=== PATIENT | male | born 1945 | race Caucasian/White ===

== ENCOUNTER 2022-10-24 09:50 | Inpatient (IN) | payer OTHER, SELFPAY ==
[2022-10-17 09:53] VITALS: BMI 23.3
[2022-10-24] VITALS (14 sets, daily range): BP systolic 82–143; BP diastolic 55–92; PULSE 60–76; RESP 11–19; TEMP 35.8–37; O2SAT 93–99; BMI 23.3
--- NOTE | 2022-10-24 06:00 | DI.RAD.S_ITS ---
PROCEDURE: XR SHOULDER LT 1V INDICATIONS: prosthesis placement TECHNIQUE: 1 views of the shoulder were acquired. COMPARISON: None. FINDINGS: Bones: Left shoulder arthroplasty. No fractures or dislocations. No suspicious bony lesions. Visualized ribs appear intact. Soft tissues: No suspicious soft tissue calcifications. IMPRESSION: Expected appearance of left shoulder arthroplasty. Dictated by: Crow Negro M.D. on 10/24/2022 at 14:57 Approved by: Crow Negro M.D. on 10/24/2022 at 14:57
[2022-10-24] MEDS: ACETAMINOPHEN 325 MG TABLET 975 MG PO (10:46)
[2022-10-24] MEDS: LACTATED RINGERS 1,000 ML 84 ML IV ×2 (10:46→13:02)
[2022-10-24] MEDS: CELECOXIB 200 MG CAPSULE PO (10:47)
[2022-10-24] MEDS: PREGABALIN 75 MG CAPSULE PO (10:47)
--- NOTE | 2022-10-24 11:10 | PM.PREOP ---
Pre-operative Note COVID-19 COVID-19 status: Negative Result date/Date tested (Pos, Neg/Pending): 10/23/22 Interval Note History & Physical reviewed/Exam performed by Physician: Yes Changes to H&P: No
--- NOTE | 2022-10-24 11:46 | SUR.PREOP ---
Block start time 1133. Monitoring initiated and maintained throughout procedure. Oxygen and medications given per anesthesiologist instructions. Patient remained stable throughout procedure, no adverse reactions noted. Block end time 1144.
[2022-10-24] MEDS: CEFAZOLIN 2 GM/100 ML PREMIX 100 ML IV ×2 (12:00→20:06)
[2022-10-24] MEDS: TRANEXAMIC ACID 1,000 MG VIAL 1000 MG INJ ×2 (12:15→13:34)
--- NOTE | 2022-10-24 12:23 | SUR.OPER ---
Beach chair with Schlein shoulder positioner. Lower body on padded OR bed. Head in foam padded head cradle, secured with straps. Non-operative arm secured AT SIDE. Pillow under knees. Safety belt at thigh. Cloth tape over blanket over lower legs.
[2022-10-24] MEDS: BUPIVACAINE 0.5% W/ EPI (PF) 30 ML VIAL INJ (12:28)
--- NOTE | 2022-10-24 13:52 | P.OP_ITS ---
Operative Date/Time/Diagnoses Date of procedure: 10/24/22 Time of procedure: 13:52 Pre-op diagnosis: Left massive, irreparable rotator cuff tear Post-op diagnosis: same Procedure & Clinicians Procedure: Left reverse total shoulder replacement Same procedure as scheduled: Yes Indications: The patient is had chronic left shoulder pain unresponsive to nonoperative therapies. Radiographic studies and arthroscopy have revealed changes consistent with a massive rotator cuff tear. They have elected to proceed with reverse total shoulder replacement after discussion of the risks benefits and alternatives. Risks discussed included but were not limited to: Failure to improve, instability, infection, nerve damage, deep venous thrombosis, pulmonary embolism, stroke, coma, myocardial infarction and . Surgeon: Luis Bui Automobile Locator: Erna Pradhan Yes if Unassisted: No Anesthesia Type: General, Peripheral nerve block and Local Operative Notes Findings: Massive rotator cuff tear of the entirety of the supraspinatus and infraspinatus. Closure Type: primary Specimen(s): none sent Prosthetic devices, grafts, tissues, transplants, or devices: Implants used in this procedure manufactured by the [employer] and included an RSP reverse total shoulder system with a 30 mm screw length glenoid base plate, 4 peripheral locking bolts measuring 22, 26, 14 and 14 mm in length, and a 32 mm neutral glenoid head with a 12 mm standard size humeral stem and a 3 2 mm standard humeral socket insert. Applied: implant(s) Estimated Blood Loss (mL): 150 Blood products transfused: none Procedure in detail: The patient was seen in the preoperative area where they identified the left shoulder as the operative site and this was marked with my initials. They received preoperative antibiotics and underwent the induction of an interscalene block. They were taken to the operating room and placed on the operating room table in a supine position with the underwent the induction of a general anesthetic. There were then repositioned in the ?beach chair? position using a dedicated positioner. All pressure points were well padded. The knees were slightly bent to prevent tension on the sciatic nerves. A sugar cane planter-out was performed. The left arm was prepared from the fingertips to the base of the neck with ChloraPrep in the usual fashion and draped through sterile drapes. An approximately 15 cm incision was created starting at the clavicle just above the coracoid and going to the deltoid insertion. The deltopectoral interval was used to access the shoulder taking the vein to the lateral side. The vein was unfortunately lacerated part way through the case and was cauterized. The upper 1 cm of the pectoralis major was released. The biceps groove was identified and used as a guide to releasing the remaining subscapularis. The subscapularis was tagged for later repair. The shoulder was dislocated and a proximal humeral osteotomy performed using an extramedullary guide. A proximal humeral protector was then placed. Retractors were placed access the glenoid. A 360 degree release was performed of the remaining subscapularis with care being taken to protect the axillary nerve. The soft tissues were removed circumferentially around the glenoid. The guide was used to drill the guide hole in the center of the inferior glenoid. The tap was placed and used as a guide for the reamer. The tap was then removed and the glenoid base plate inserted. The peripheral locking screws were then placed through the appropriate guide. A trial glenoid head was applied. We then turned our attention to the humerus. The proximal humeral protector was removed. Cylindrical reamers were used to size the canal. Broaching was then performed beginning with a small broach and working up until a line to line fit with the reamer was obtained. The guide for the proximal metaphyseal reamer was then applied and the metaphysis was reamed appropriately. The trial metaphyseal portion of the body was then applied to the broach. Trial reductions were performed and the size of the glenoid head and the cup were optimized. Stability was checked in maximal internal and external rotation and range of motion was checked to allow access to the top of the head, internal rotation to an excess of 50? in the ?scarecrow position? and the ability to reach the groin. The appropriate final prosthetic components were then opened. The glenoid head was impacted into position and checked for rotational and axial stability before placing the set screw. Drill holes for repair of the subscapularis were performed and sutures placed. The humeral prosthetic was then impacted into position. The humeral cup was placed. The joint was relocated and irrigated. The subscapularis was repaired to the previously placed sutures. The deltopectoral interval was reapproximated with 0 Vicryl. Subcutaneous layer was closed with interrupted 3-0 Vicryl and skin with a running 3 0 V lock suture and Dermabond. Subcutaneous tissues were then infiltrated with 0.5% Marcaine for postoperative pain control. An Aquacel Ag dressing was applied and the patient's arm was placed in a sling. The patient was then transferred to the recovery room in good condition having tolerated the procedure well. The assistance of a skilled surgical physician assistant was necessary in this procedure to position the arm, provide exposure and to retract to protect vital structures. Without the services of Ms. Perez, the procedure could not have been completed in a safe, expedient fashion. Complications: none Post-operative Condition: stable Disposition: PACU Plan for aftercare: The patient will be maintained on a standard reverse total shoulder protocol. He will be maintained in the hospital overnight for pain control.
--- NOTE | 2022-10-24 14:44 | SUR.PHASEI ---
Report called to
--- NOTE | 2022-10-24 15:01 | SUR.PHASEI ---
Patient transferred to the floor with three belongings bags. VS stable. IV patent. Left shoulder dressing CDI, sling in place.
[2022-10-24] MEDS: LACTATED RINGERS 1,000 ML 100 ML IV (15:31)
--- NOTE | 2022-10-24 15:40 | PC.NURSE ---
Admission note Pt arrived via bed, A/Ox4 but drowsy. Connected to monitor, post op vitals, oriented to room and call light system, pt denies pain, dressing to L shoulder is CDI, arm in sling, LR infusing as ordered to R wrist PIV, call light within reach, bed low and locked, alarm on for safety, will continue to monitor
[2022-10-24] MEDS: ACETAMINOPHEN 325 MG TABLET 650 MG PO (17:44)
[2022-10-24] MEDS: ASPIRIN EC 81 MG TABLET PO (20:07)
[2022-10-24] MEDS: TRAZODONE 50 MG TABLET PO (20:07)
[2022-10-25] VITALS: BP 116/70; PULSE 70; RESP 16; TEMP 36.4; O2SAT 95
[2022-10-25] MEDS: LACTATED RINGERS 1,000 ML 100 ML IV (00:49)
[2022-10-25] MEDS: ACETAMINOPHEN 325 MG TABLET 650 MG PO ×2 (00:49→06:18)
--- NOTE | 2022-10-25 03:00 | PC.NURSE ---
0230- Assisted patient oob to the bathroom. Patient steady on his feet and states he has sensation in his skin to the left arm but does not feel any pain. Pulses are palpable. Discussed with patient when he should notify nurse of pain. Patient states he understands. Will monitor.
[2022-10-25] MEDS: CEFAZOLIN 2 GM/100 ML PREMIX 100 ML IV (03:07)
[2022-10-25 04:00] VITALS: BP 101/61; PULSE 67; RESP 18; TEMP 36.3; O2SAT 99
[2022-10-25 05:43] LABS: Hematocrit 34.1 % (41-53); Hemoglobin 11.6 g/dL (13.5-17.5)
--- NOTE | 2022-10-25 08:08 | PM.DS.1 ---
History of Present Illness History of Present Illness Date Patient Seen: 10/25/22 Time Patient Seen: 08:08 Chief complaint: Left TSA reverse Narrative: Patient is complaining of very mild left shoulder pain, notes his block is finally starting to wear off. He denies any new numbness or tingling. Overall he is feeling well and would like to be discharged home today. He is not worked with physical therapy yet. Discharge Providers Provider Date of admission: 10/24/22 09:50 Discharge Date: 10/25/22 Primary care physician: Moe Morrison MD Consults: 10/24/22 14:44 Consult to Discharge Planning Routine Comment: Consult to Physical Therapy Evaluate & Treat Comment: Physician Instructions: pendulums, PROM 90 FF, 0 ER, 0 Abd, IR to body Discharge provider: Frieda Bowling PA-C Summary Hospital Course Discharge Diagnosis: Left massive, irreparable rotator cuff tear Hospital Course: Operative Date/Time/Diagnoses Date of procedure: 10/24/22 Time of procedure: 13:52 Procedure & Clinicians Procedure: Left reverse total shoulder replacement Same procedure as scheduled: Yes Indications: The patient is had chronic left shoulder pain unresponsive to nonoperative therapies.? Radiographic studies and arthroscopy have revealed changes consistent with a massive rotator cuff tear. They have elected to proceed with reverse total shoulder replacement after discussion of the risks benefits and alternatives. Risks discussed included but were not limited to:? Failure to improve, instability, infection, nerve damage, deep venous thrombosis, pulmonary embolism, stroke, coma, myocardial infarction and . Surgeon: Luis Bui Leadership Development Manager: Erna Perez Click Yes if Unassisted: No Anesthesia Type: General, Peripheral nerve block and Local Operative Notes Findings: Massive rotator cuff tear of the entirety of the supraspinatus and infraspinatus. Closure Type: primary Specimen(s): none sent Prosthetic devices, grafts, tissues, transplants, or devices: Implants used in this procedure manufactured by the [employer] and included an RSP reverse total shoulder system with a 30 mm screw length glenoid base plate, 4 peripheral locking bolts measuring 22, 26, 14 and 14 mm in length, and a 32 mm neutral glenoid head with a 12 mm standard size humeral stem and a 32 mm standard humeral socket insert. Applied: implant(s) Estimated Blood Loss (mL): 150 Blood products transfused: none Status at Discharge Cognitive/behavioral status at discharge: at baseline, oriented Functional status at discharge: independent ambulation Overall status at discharge: patient is progressing back to baseline Exam Vital Signs (past 8 hours): - 10/25/22 04:00 Temperature 97.4 F L Pulse Rate 67 Respiratory Rate 18 Blood Pressure 101/61 Pulse Oximetry 99 Oxygen Delivery Method Room Air Oxygen Flow Rate 0 Narrative Exam Narrative: Pleasant 76-year-old male, resting comfortably in bed, no acute distress. Left shoulder dressing is clean, dry, intact. Sling is in place. Bilateral upper extremity: Motor functions are grossly intact, sensation is grossly intact to light touch. Objective Labs Result Diagrams: 10/25/22 04:52 Labs: Laboratory Results - last 24 hr 10/25/22 04:52 Hgb 11.6 L Hct 34.1 L PFSH Medical History Acid reflux Anesthesia complication Anxiety COVID-19 (10/2021) DDD (degenerative disc disease) Eczema Enlarged prostate Hearing loss in right ear HTN (hypertension) Industrial fumes exposure (~1970) Kidney stones RSV (acute bronchiolitis due to respiratory syncytial virus) (~08/2022) Surgical History H/O transurethral resection of prostate Hx of abdominal surgery Hx of appendectomy Hx of cholecystectomy Hx of elbow surgery Hx of LASIK Hx of repair of left rotator cuff Hx of tonsillectomy Social History household members: other Smoking Status: Never smoker alcohol intake: current Discharge Assessment & Plan Assessment and Plan Assessment: -stable status post left reverse total shoulder arthroplasty Plan of Treatment: -mobilize with PT/OT. Maintain standard reverse total shoulder arthroplasty protocol -continue with multimodal pain management -aspirin 81 mg b.i.d. x4 weeks for DVT prophylaxis -DC home once cleared by PT Discharge Plan Discharge Plan Patient Disposition: Home Discharge orders & Medications Prescriptions: New acetaminophen 325 mg Tablet 650 mg PO Q6HR MDD Max 3000 mg per day PRN (Reason: fever or pain) Qty: 90 0RF aspirin 81 mg Tablet,Delayed Release (Dr/Ec) 81 mg PO BID 28 Days Qty: 56 0RF Rx Instructions: Prevent blood clots docusate sodium 100 mg Capsule 100 mg PO BID PRN (Reason: constipation) Qty: 20 0RF oxycodone 5 mg Tablet 5 mg PO Q3HR PRN (Reason: Pain, Moderate (4-6)) Qty: 20 0RF Continued trazodone 50 mg Tablet 50 mg PO BEDTIME tamsulosin 0.4 mg Capsule 0.4 mg PO DAILY ibuprofen 200 mg Tablet 400 mg PO Q6H PRN (Reason: Pain) lisinopril 5 mg Tablet 5 mg PO DAILY Follow up/Referrals: Moe Morrison MD [Primary Care Provider] - Luis Bui MD [Physician] - As previously scheduled (Follow up w/ Frieda Bowling PA-C, on 11/08/2022 @ 8:30 am at [facility] office in [place].) Diet/Activity/Treatments Diet: Diet as Tolerated Activity: Sling at all times; may take off to shower. Cold/Heat Therapy: Ice to shoulder as needed for pain. Other treatments: Medications: -Aspirin 81mg twice daily x4 weeks to prevent blood clots. -OTC Tylenol 500 mg 1 tablet every 4 hours as needed for pain/fever. Max 6 tablets per day. -Ibuprofen 400mg 1 tablet every 4 hours as needed for pain/inflammation. Max 2,400mg per day. -Oxycodone 5 mg take 1-2 tablets every 4 hours as needed for moderate-severe pain (narcotic pain medication). -As needed medications: -Ducolax and /or MiraLax as needed for constipation from narcotic pain medications. -Pepcid AC as needed for stomach upset (usually from aspirin or ibuprofen). Dressing/Wound care: -Keep Aquacell dressing in place until postoperative follow-up office visit. -Okay to shower. Keep wound out of direct water stream. No soaking or submerging until all the scabs fall off (approximately 6 weeks). -Please call the office if dressing becomes wet, soiled, or saturated. Activities: -Maintain standard reverse total shoulder protocol: -OK to use your hand in front of your body, below shoulder level; ok to lift 1-2 lb for the first several weeks. Your activities will be advanced by physical therapy. -Continue with sling. Ok to remove sling to shower. -Continue with home exercises as directed by your physical therapist, including Codman/pendulum exercises. -Ice your incision as needed for pain/inflammation/swelling. Protect your skin with a folded pillowcase. -Incentive Spirometer (breathing device from hospital): 5-10xs every hour while awake for the first 1-2 weeks. Follow-up: -Follow-up with your surgeon or PA in the office in 10-14 days after surgery. -Follow-up with your surgeon 6 weeks postoperatively. Call the office if you have chest pain, shortness of breath, significant swelling that will not resolve with elevating, fever over 101?, significantly worsening pain, or are concerned you might need to go to the Emergency Room. [facility]: [phone] Skin/Wound/Dressing Care Report to your healthcare provider any signs of infection, such as:: chills, fever, night sweats, unusual drainage and unusual redness Visit Report/Discharge Packet Instructions: DI for Shoulder Replacement Stand Alone Forms: Patient Portal/API, Stroke Signs & Symptoms, Surgery Discharge Discharge Data Primary Care Provider: Moe Morrison
[2022-10-25 08:35] VITALS: BP 101/61; PULSE 82
[2022-10-25] MEDS: ASPIRIN EC 81 MG TABLET PO (08:35)
[2022-10-25] MEDS: lisinopriL 5 MG TABLET PO (08:35)
[2022-10-25] MEDS: TAMSULOSIN 0.4 MG CAPSULE PO (08:35)
[2022-10-25] MEDS: DOCUSATE 100 MG CAPSULE PO (08:36)
[2022-10-25] MEDS: OXYCODONE IR 5 MG TABLET PO (09:01)
--- NOTE | 2022-10-25 10:09 | PT.IIE ---
Current Diagnoses Strain of muscle(s) and tendon(s) of the rotator cuff of left shoulder, initial encounter (10/24/22) Strain of unspecified muscle, fascia and tendon at shoulder and upper arm level, right arm, initial encounter (10/24/22) Surgery Performed Operation Date: 10/24/22 12:30 Actual Procedures p Total Shoulder Arthroplasty - Reverse(Left) - Luis Bui MD Surgical History (Last Reviewed 10/25/22 @ 08:09 by Frieda Bowling PA-C) H/O transurethral resection of prostate Hx of abdominal surgery Hx of appendectomy Hx of cholecystectomy Hx of elbow surgery Hx of LASIK Hx of repair of left rotator cuff Hx of tonsillectomy Medical History (Last Reviewed 10/25/22 @ 08:09 by Frieda Bowling PA-C) Acid reflux Anesthesia complication Anxiety COVID-19 (10/2021) DDD (degenerative disc disease) Eczema Enlarged prostate Hearing loss in right ear HTN (hypertension) Industrial fumes exposure (~1970) Kidney stones RSV (acute bronchiolitis due to respiratory syncytial virus) (~08/2022) Physical Therapy Inpatient Evaluation/Re-Eval M1 PT/OT-IP Prior Functional Status Start: 10/25/22 10:00 Freq: Status: Active Protocol: Document 10/25/22 10:00 BC (Rec: 10/25/22 10:09 [id number]) Medical Review Prior Functional Status Medical History Reviewed Yes Diet/Fluid Consistency Regular Mobility and Gait Independent Activities of Daily Living and IADL's Independent Prior Functional Level (Other details) 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 Lives with several roommates in his private home. Social History Household Members other Living Arrangements House Number of Floors (Floors) Two Floors Home Environment Standard Height Toilet Employment Status Janitor Head Employed M2 PT-IP Current Condition Start: 10/25/22 10:00 Freq: Status: Active Protocol: Document 10/25/22 10:00 BC (Rec: 10/25/22 10:09 [id number]) Physical Therapy Current Condition Current Condition Evaluation Date 10/25/22 Treatment Diagnosis s/p L TSA; impaired shoulder ROM; impaired independence with ADLs Onset Date 10/24/22 M3 PT-IP Subjective Start: 10/25/22 10:00 Freq: Status: Active Protocol: Document 10/25/22 10:00 BC (Rec: 10/25/22 10:09 [id number]) Subjective Physical Therapy Visit Type Type Initial Evaluation Visit Start Time 09:15 Visit Stop Time 10:00 Total Visit Minutes 35 Physical Therapy Visit Comments Patient Comments I am not worried about walking or stairs. I have good strong legs. Patient Goals To be able to dress and don sling on his own. Therapy Pain Assessment Pain When Pain Assessed At Rest Pain Present Pain Present Pain Reported Location Left Shoulder Intensity 5 Scale Used Numeric (0 - 10) Description Acute Pain Management Techniques Re-positioning M4 PT-IP Mobility and Gait Start: 10/25/22 10:00 Freq: Status: Active Protocol: Document 10/25/22 10:00 (Rec: 10/25/22 10:09 [id number]) PT-Bed Mobility Assessment Rolling Level of Assist Independent Supine to Sit Supine to Sit Independent Sit to Supine Sit to Supine Independent Scooting Scooting to Edge of Bed Independent PT-Transfer Assessment Sit to and From Stand Sit to and from Stand Independent Equipment Transfer Assistive Device None Orthotic/Prosthetic Devices or Brace: Yes Transfers Transfer Destination Bed Transfer Technique Stand Step Pivot Transfer Ability Level of Assist Independent Comments Mobility Comments No deficits with mobility around room Gait Assessment Gait Gait Assistance Required: Independent Distance (Feet) 50 Assistive Devices Assistive Device None Gait Deviations General Gait Pattern Within Normal Limits Stair Climbing Assessment Comments Stair Climbing Comments Pt declined need to do stairs PT-Balance Assessment Sitting Balance and Reactions Static Sitting Balance Ability Normal Dynamic Sitting Balance Ability Normal Standing Balance and Reactions Static Standing Balance Ability Normal Dynamic Standing Balance Ability Normal M5 PT-IP Objective Assessments Start: 10/25/22 10:00 Freq: Status: Active Protocol: Document 10/25/22 10:00 BC (Rec: 10/25/22 10:09 [id number]) Orientation Orientation/Cognition Level of Alertness Alert Orientation Name,Birthday,Date,Year,Place, Situation Language Function Ability No Deficits Noted Safety Awareness Understands Safety Issues Gross Range of Motion Upper Extremity ROM Assessment Left Impaired Impairments s/p L TSA, no ROM assessed at shoulder Elbow, wrist and digit ROM WNL Lower Extremity ROM Assessment Within Functional Limits Strength Upper Extremity Strength Assessment Left Impaired Shoulder not assessed Elbow at least 3/5 Wrist at least 3/5 Hand at least 3/5 Lower Extremity Strength Assessment Within Functional Limits Sensation Assessment Sensation Gross Sensation WNL Comments Sensation Comments Reports sensation to touch along anterior axilla of L shoulder was numb but now has full sensation. M6 PT-IP Treatment Start: 10/25/22 10:00 Freq: Status: Active Protocol: Document 10/25/22 10:00 BC (Rec: 10/25/22 10:09 [id number]) Physical Therapy Treatment Exercises Exercises Shoulder Pendulums,Elbow Flexion/Extension,Wrist ROM, Hand ROM Knee ROM Measurement scapular squeezes Education Education Provided Precautions,Post-Op Packet, Safety Brace Education [place],Patient Other Treatments Other Treatment Performed Demo'd sling don/doff x2 reps with 2 different techniques. Pt completed dressing and donning of sling I'ly with PT present to provide cues/ support as needed. M7 PT-IP Assessment and Plan Start: 10/25/22 10:00 Freq: Status: Active Protocol: Document 10/25/22 10:00 (Rec: 10/25/22 10:09 [id number]) PT Summary Assessment and Plan Potential Rehabilitation Potential Excellent Status of Condition at Evaluation Stable Summary Progress Towards Goals Safe For Discharge,Goals Met Assessment Summary Pt admitted s/p L TSA. 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 He was provided with post op packet. We reviewed and demo'd exercises including pendulum and scapular retraction. We discussed precautions of keeping LUE in sling at all times except showering. He has a shower stool at his mother's home he can obtain for safety. He donned/doffed sling 2x on second trial I'ly. He dressed with PT providing just verbal cues on technique. Pt has good compliance with LUE restrictions at this time. He reports he has appt set up for OPPT. He has 3 slings at home, recommend he brings those into OPPT to determine if appropriate to use until then continue using hospital provided sling. There is no concern of his ambulation or balance. He denies need to do stairs and therapist agrees his LE mobility appears completely WNL. Recommend d/c when medically stable. Frequency of Treatment Frequency Of Treatment Discharge Precautions Shoulder Precautions Sling,PROM,Internal Rotation to Body,No External Rotation, No Abduction,Forward Flexion to 90 degrees,Pendulums Brace LUE sling Weight Bearing Status Weight Bearing Status Non-Weight Bearing Recommendations To Nursing Amount of Assist Needed Independent,Standby Assistance Discharge Recommendations PT Discharge Recommendations Home Transportation Needs at Discharge Private Vehicle
--- NOTE | 2022-10-25 11:20 | PC.NURSE ---
Pt is dressed and ready for discharge home - He has a ride arranged. IV removed. Went over d/c instructions with Pt - discussed d/c meds, time of last dose, reviewed stroke education, s/s of infection, wearing sling at all times except in shower, no driving while on narcotics, and drink plenty of fluids to prevent constipation or dehydration. Pt denied further questions and is waiting in the waiting room for his ride to arrive.
== END 2022-10-25 11:23 | disposition home or self-care (01) | DRG 322 ==
LOC: AC 09:54 → ICU 12:12
PROVIDERS: Admitting Provider Orthopaedic Surgery; Family Provider Family Medicine; PCP Family Medicine; Referring Provider Orthopaedic Surgery; Visit Provider Orthopaedic Surgery
PROC: 0RRK00Z Replacement of Left Shoulder Joint with Reverse Ball and Socket Synthetic Substitute, Open Approach (ICD-10-PCS; CPT 23472; principal; 2022-10-24 12:30)
DX: M75.122 Complete rotator cuff tear or rupture of left shoulder, not specified as traumatic (principal); N40.0 Benign prostatic hyperplasia without lower urinary tract symptoms; I10 Essential (primary) hypertension; Z20.822 Contact with and (suspected) exposure to COVID-19
CPT/HCPCS: 36415; 64450; 73020; 85014; 85018; 97161; 97530; C1776; J0690; J1100; J2250; J2405; J2704; J3010